=== PATIENT | female | born 1970 | race Caucasian/White ===

== ENCOUNTER 2019-11-05 11:36 | Emergency (ER) | payer MEDICAID ==
[~2019-11-05] VITALS: Ht 167.6 cm; Wt 117.0 kg
[~2019-11-05 11:36] MED LIST: ASPI-1071 PO; BUSP10TA11 PO; INSU100V11 SQ; LANTUS SQ; LEVO100T PO; VENL75CA55 PO
[2019-11-05] MEDS ORDERED: PRED20TA PO (12:43)
[2019-11-05] MEDS ORDERED: ALBU8.5H8 INH (12:43)
[2019-11-05 12:51] VITALS: BP 130/83
== END 2019-11-05 12:51 | disposition home or self-care (01) ==
LOC: ER 11:36
DX: J20.9 Acute bronchitis, unspecified (principal); E11.9 Type 2 diabetes mellitus without complications; F41.9 Anxiety disorder, unspecified; F32.9 Major depressive disorder, single episode, unspecified; F12.90 Cannabis use, unspecified, uncomplicated; F17.210 Nicotine dependence, cigarettes, uncomplicated; Z88.6 Allergy status to analgesic agent; Z79.82 Long term (current) use of aspirin; Z79.4 Long term (current) use of insulin; Z79.899 Other long term (current) drug therapy
CPT/HCPCS: 99283

== ENCOUNTER 2022-01-25 15:55 | Emergency (ER) | payer OTHER, MEDICAID ==
[~2022-01-25] VITALS: Ht 165.1 cm; Wt 109.1 kg
[~2022-01-25 15:55] MED LIST changes: +ALBU8.5H17 INH
[2022-01-25] MEDS ORDERED: METH-797 PO (16:14)
[2022-01-25] MEDS ORDERED: ketorolac tromethamine 15mg/ml inj. IM ONE (16:15)
[2022-01-25] MEDS ORDERED: acetaminophen 325mg tablet PO ONE (16:15)
[2022-01-25 16:35] VITALS: BP 124/81
== END 2022-01-25 16:36 | disposition home or self-care (01) ==
LOC: ER 15:55
DX: S16.1XXA Strain of muscle, fascia and tendon at neck level, initial encounter (principal); S29.019A Strain of muscle and tendon of unspecified wall of thorax, initial encounter; S39.012A Strain of muscle, fascia and tendon of lower back, initial encounter; E11.9 Type 2 diabetes mellitus without complications; F41.9 Anxiety disorder, unspecified; F32.9 Major depressive disorder, single episode, unspecified; F12.10 Cannabis abuse, uncomplicated; V87.7XXA Person injured in collision between other specified motor vehicles (traffic), initial encounter; Y93.89 Activity, other specified; Y92.89 Other specified places as the place of occurrence of the external cause; Y99.8 Other external cause status; Z88.5 Allergy status to narcotic agent; Z88.8 Allergy status to other drugs, medicaments and biological substances; Z79.899 Other long term (current) drug therapy
CPT/HCPCS: 96372; 99283; J1885

== ENCOUNTER 2022-03-10 07:52 | Emergency (ER) | payer OTHER, MEDICAID ==
[~2022-03-10] VITALS: Ht 167.6 cm; Wt 137.7 kg
[~2022-03-10 07:52] MED LIST changes: +METH-797 PO
[2022-03-10 08:14] VITALS: BP 158/99
[2022-03-10] MEDS ORDERED: ketorolac trometh. 30mg/ml inj. IM ONE (09:50)
[2022-03-10] MEDS ORDERED: CYCL-1 PO (10:44)
== END 2022-03-10 11:04 | disposition home or self-care (01) ==
LOC: ER 07:53
DX: S16.1XXD Strain of muscle, fascia and tendon at neck level, subsequent encounter (principal); S29.019D Strain of muscle and tendon of unspecified wall of thorax, subsequent encounter; M54.2 Cervicalgia; M54.89 Other dorsalgia; I10 Essential (primary) hypertension; E11.9 Type 2 diabetes mellitus without complications; E03.9 Hypothyroidism, unspecified; F41.9 Anxiety disorder, unspecified; F32.A Depression, unspecified; F12.90 Cannabis use, unspecified, uncomplicated; Z88.5 Allergy status to narcotic agent; Z88.8 Allergy status to other drugs, medicaments and biological substances; Z79.82 Long term (current) use of aspirin; Z79.4 Long term (current) use of insulin; Z79.899 Other long term (current) drug therapy; V99.XXXD Unspecified transport accident, subsequent encounter
CPT/HCPCS: 72125; 96372; 99284; J1885

== ENCOUNTER 2023-08-08 13:02 | Emergency (ER) | payer MEDICAID, OTHER ==
[~2023-08-08] VITALS: Ht 165.1 cm; Wt 117.8 kg
[~2023-08-08 13:02] MED LIST changes: +CYCL-1 PO
[2023-08-08] MEDS ORDERED: cephalexin 250mg capsule PO ONE (14:00)
[2023-08-08] MEDS ORDERED: TETanus/Pertussis (Acell)/Diphther VAC/PF (Tdap-Adult) 0.5ml syringe IMVAC ONE (14:00)
[2023-08-08] MEDS ORDERED: LIDOCAINE 1%/EPI 1:100,000 inj. 10 ML multi-dose vial IJ ONE (14:00)
[2023-08-08] MEDS ORDERED: CEPH250T PO (14:17)
[2023-08-08] MEDS ORDERED: DOXY-356 PO (14:43)
[2023-08-08 15:22] VITALS: BP 113/94; PULSE 108; RESP 18; TEMP 98.6; O2SAT 95
--- NOTE | 2023-08-08 16:39 | NUR ---
ASSESSMENT MADE BY AERIAL APPLICATOR PILOT REVIEWED AND APPROVED BY THIS RN
== END 2023-08-08 16:39 | disposition home or self-care (01) ==
LOC: ER 13:03
DX: J86.9 Pyothorax without fistula (principal); E11.9 Type 2 diabetes mellitus without complications; I10 Essential (primary) hypertension; F12.10 Cannabis abuse, uncomplicated
CPT/HCPCS: 10060; 90471; 90715; 99283; A6258; A6449

== ENCOUNTER 2023-08-13 11:44 | Emergency (ER) | payer MEDICAID ==
[~2023-08-13] VITALS: Ht 165.1 cm; Wt 140.0 kg
[~2023-08-13 11:44] MED LIST changes: +CEPH250T PO; +DOXY-356 PO
[2023-08-13 11:50] VITALS: BP 108/80; PULSE 82; RESP 18; O2SAT 97
[2023-08-13] MEDS ORDERED: LIDOcaine 0.5% W/epiNEPHrine 1:200,000 50ml vial IJ ONE (14:45)
[2023-08-13] MEDS ORDERED: LIDOCAINE 1%/EPI 1:100,000 inj. 10 ML multi-dose vial IJ ONE (14:55)
[2023-08-13 15:36] VITALS: TEMP 97
--- NOTE | 2023-08-13 19:04 | NUR ---
CONCRETE BLOCK MOLDER ASSESSMENT REVIEWED BY MILAN RN, APPROVED
== END 2023-08-13 15:47 | disposition home or self-care (01) ==
LOC: ER 11:45
DX: J86.9 Pyothorax without fistula (principal); Z48.00 Encounter for change or removal of nonsurgical wound dressing; I10 Essential (primary) hypertension; E11.9 Type 2 diabetes mellitus without complications; E03.9 Hypothyroidism, unspecified; F31.9 Bipolar disorder, unspecified; F17.200 Nicotine dependence, unspecified, uncomplicated; F12.10 Cannabis abuse, uncomplicated; Z79.899 Other long term (current) drug therapy
CPT/HCPCS: 99282; A6266; A6407; J3490